=== PATIENT | female | born 1980 | race Caucasian/White ===

== ENCOUNTER 2021-12-20 12:11 | Outpatient (CLI) | payer BC, SELFPAY ==
[2021-12-20 15:16] LABS: Cholesterol* 154 mg/dL (90-199)
[2021-12-20 15:17] LABS: HDL Cholesterol* 47 mg/dL (>=50); LDL Cholesterol Calculated 90 mg/dL (<100); Triglycerides* 85 mg/dL (40-149)
== END 2021-12-20 12:12 | disposition home or self-care (01) ==
PROVIDERS: PCP Internal Medicine; Visit Provider Obstetrics & Gynecology
DX: Z01.419 Encounter for gynecological examination (general) (routine) without abnormal findings (principal); E03.9 Hypothyroidism, unspecified; L70.9 Acne, unspecified; Z13.6 Encounter for screening for cardiovascular disorders
CPT/HCPCS: 80061; 84439; 84443

== ENCOUNTER 2021-12-30 09:35 | Outpatient (CLI) | payer BC, SELFPAY ==
--- NOTE | 2021-12-30 09:45 | CRLHL7_ITS ---
For Patients: As a result of the Cures Act, medical imaging exams and procedure reports are released immediately into your electronic medical record. You may view this report before your referring provider. If you have questions, please contact your health care provider. DIGITAL DIAGNOSTIC BILATERAL MAMMOGRAM WITH COMPUTER-AIDED DETECTION, 12/30/2021 RIGHT BREAST ULTRASOUND, 12/30/2021 CLINICAL HISTORY: RIGHT breast lump. COMPARISON: 02/06/2021. TECHNIQUE: Digital BILATERAL mammogram in four projections. Computer-aided detection utilized. Real-time ultrasound imaging of RIGHT breast with imaging documentation. BREAST COMPOSITION: The breasts are heterogeneously dense, which may obscure small masses. FINDINGS: 3D CC/MLO mammogram submitted bilaterally. No suspicious masses or architectural distortion bilaterally. Targeted RIGHT breast ultrasound performed in the area of concern 9 o`clock 8 cm from the nipple. In this location there is a benign intramammary lymph node measuring 8 x 3 x 9 mm. IMPRESSION: Benign intramammary lymph node RIGHT breast 9 o`clock 8 cm from the nipple measuring 9 mm. No evidence of malignancy. ASSESSMENT: BI-RADS Category 2: Benign RECOMMENDATIONS: Annual bilateral screening mammography. Results and recommendations discussed with the patient. A lay language report of this examination will be provided to the patient. Dictated by Fransisco Boland MD @ 12/30/2021 12:38:43 PM JEFE/Dictated by: Fransisco Boland MD @ 12/30/2021 12:38:00 PM (Electronically Signed)
--- NOTE | 2021-12-30 10:15 | CRLHL7_ITS ---
For Patients: As a result of the Cures Act, medical imaging exams and procedure reports are released immediately into your electronic medical record. You may view this report before your referring provider. If you have questions, please contact your health care provider. PLEASE SEE DIGITAL DIAGNOSTIC BILATERAL MAMMOGRAM PERFORMED SAME DAY CRL:krish rutherford/Dictated by: Fransisco Boland MD @ 12/30/2021 12:38:00 PM (Electronically Signed)
== END 2021-12-30 09:36 | disposition home or self-care (01) ==
LOC: MAMMO 09:35
PROVIDERS: PCP Internal Medicine; Visit Provider Obstetrics & Gynecology
DX: N63.10 Unspecified lump in the right breast, unspecified quadrant (principal); R92.8 Other abnormal and inconclusive findings on diagnostic imaging of breast
CPT/HCPCS: 76642; 77066; G0279

== ENCOUNTER 2022-02-07 08:15 | Outpatient (RCR) | payer BC, SELFPAY | END 2022-04-17 11:39 | disposition home or self-care (01) | PROVIDERS: PCP Internal Medicine; Visit Provider Internal Medicine | DX: G57.02 Lesion of sciatic nerve, left lower limb (principal); Z51.89 Encounter for other specified aftercare | CPT/HCPCS: 97110; 97112; 97140; 97161 ==

== ENCOUNTER 2022-12-10 14:43 | Outpatient (CLI) | payer BC, SELFPAY | END 2022-12-10 14:44 | disposition home or self-care (01) | LOC: NFLDREF 14:50 | PROVIDERS: PCP Internal Medicine; Visit Provider Family Medicine | DX: E03.9 Hypothyroidism, unspecified (principal) | CPT/HCPCS: 80061; 84443 ==

== ENCOUNTER 2023-01-16 08:04 | Outpatient (CLI) | payer BC, SELFPAY ==
--- NOTE | 2023-01-16 08:15 | CRLHL7_ITS ---
For Patients: As a result of the Century Cures Act, medical imaging exams and procedure reports are released immediately into your electronic medical record. You may view this report before your referring provider. If you have questions, please contact your health care provider. BILATERAL SCREENING MAMMOGRAM WITH COMPUTER-AIDED DETECTION TECHNIQUE: CC and MLO views were obtained. These mammographic images have been obtained using full-field digital technique. These mammographic images were interpreted with the benefit of computer-aided detection. COMPARISON FILM: 12/30/21, 02/06/21. FINDINGS: The breasts are heterogeneously dense, which may obscure small masses IMPRESSION: There is no radiographic evidence for malignancy. ASSESSMENT: BI-RADS Category 1: Negative RECOMMENDATION: Routine screening mammogram in 1 year. A lay language report of this examination will be provided to the patient. Fransisco Boland M.D. Diagnostic Radiologist [email or web address] ALYCE/[email or web address] / be/Dictated by: Fransisco Boland MD @ 01/16/2023 9:10:00 AM (Electronically Signed)
== END 2023-01-16 08:05 | disposition home or self-care (01) ==
LOC: MAMMO 08:05
PROVIDERS: PCP Internal Medicine; Visit Provider Obstetrics & Gynecology
DX: Z12.31 Encounter for screening mammogram for malignant neoplasm of breast (principal); R92.2 Inconclusive mammogram
CPT/HCPCS: 77067

== ENCOUNTER 2023-10-29 13:02 | Outpatient (CLI) | payer BC, SELFPAY ==
--- OUTSIDE RECORDS SUMMARY | 2023-10-29 14:45 | XMS_ITS | Referral Summary ---
Author Name Unknown Organization [facility] Address [address] [place] [address] Care Team Providers Care Vp Organizational Development Name Role Phone Elsewhere, Pcp Primary Care Provider Unavailabl e Source Comments Patient records contain information from all sites at [facility]. For routine questions regarding patient records, call [phone] during business hours, M-F 8:00 AM - 5:00 PM Central Time. Record requests for emergency care only can be directed to [phone] at any time.[facility] Allergies Active Allergy Reactions Criticality Noted Date Comments Cat's Claw Other (see comments) 05/13/2023 Cat Dander Cough 04/17/2010 Cephalexin Anaphylaxis 12/19/2005 Dog Dander Cough 12/04/2017 House Dust Cough Indomethacin Rash 11/20/2014 Medications Medication Sig Dispensed Refills Start Date End Date Status fluticasone propionate (FLOVENT HFA) 110 mcg/actuation inhaler Inhale 1 puff 2 (two) times a day as needed. 06/06/2016 Active levothyroxine (SYNTHROID, LEVOTHROID) 50 mcg tablet Take 50 mcg by mouth. 08/02/2009 Active loratadine (CLARITIN) 10 mg tablet Take 10 mg by mouth. 11/20/2014 Active magnesium oxide (MAG-OX) 250 mg of magnesium tablet Take 250 mg by mouth daily. Active norethindrone (MICRONOR) 0.35 mg tablet Take 1 tablet (0.35 mg total) by mouth daily. 84 tablet 4 12/25/2022 12/25/2023 Active budesonide (PULMICORT) 0.5 mg/2 mL nebulizer solution Mix 2 mL of medication with 8 oz nasal saline. Irrigate nose as directed twice a day for 10 days. 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 No 11/18/2022 Within the last year, have y ou been humiliated or emotionally abused in other ways by your partner or ex-partner? No Within the last year, have y ou been kicked, hit, slapped, or otherwise physically hurt by your partner or ex-partner? No 11/18/2022 Within the last year, have y ou been raped or forced to have any kind of sexual activity by your partner or ex-partner? No 11/18/2022 Overall Financial Resource Strain (CARDIA) Answe r Date Recorded How hard is it for you to pa y for the very basics like food, housing, medical care, and heating? Not hard at all 11/18/2022 PHQ-2 Answer Date Recorded PHQ-2 Score 0 12/25/2022 Exercise Vital Sign Answer Date Recorde d On average, how many days pe r week do you engage in moderate to strenuous exercise (like a brisk walk)? 5 days 11/18/2022 On average, how many minutes do you engage in exercise at this level? 40 min 11/18/2022 Hunger Vital Sign Answer Date Recorded Within the past 12 months, y ou worried that your food would run out before you got the money to buy more. Never true 11/19/19 23 Within the past 12 months, t he food you bought just didn't last and you didn't have money to get more. Never true 11/18/2022 PRAPARE - Transportation Answer Date Re corded In the past 12 months, has l ack of transportation kept you from medical appointments or from getting medications? No 10/22 In the past 12 months, has l ack of transportation kept you from meetings, work, or from getting things needed for daily living? No 11/18/2022 Depression Answer Date Recor ded PHQ-9 Total Score (max 27) 1 12/25 Nutrition Answer Date Recorded Nutrition: EVOO Fat Source Unknown 11/18 On average, how many serving s of fruits and vegetables do you eat per day (serving size is equal to 1 cup or approximately the size of a tennis ball)? 3-5 11/18/2022 Dental Answer Date Recorded Dental: Regular Dentist Yes 11/19/19 Employment Answer Date Recorded Employment status Employed and actively working without restrictions 11/18/2022 Housing Stability Answer Date Recorded What is your living situation today? I have a [facility] place to live 11/18/2022 Sex and Gender Information Value Date Recorded Sex Assigned at Female 09/08/2018 7:38 PM CDT Gender Identity Female 09/08/2018 7:38 PM CDT Sexual Orientation Straight 09/08/2018 7: 38 PM CDT Last Filed Vital Signs Vital Sign Reading Time Taken Comments Blood Pressure 113/76 12/25/2022 10:52 AM CDT Pulse 72 12/25/2022 10:52 AM CDT Temperature 37 ??C (98.6 ??F) 07/03/2022 1:31 PM ADMINISTRATIVE SERVICES COORDINATOR Respiratory Rate 16 12/25/2022 10:52 AM CDT Oxygen Saturation 100% 12/04/2021 2:52 PM CDT Inhaled Oxygen Concentration - - Weight 51.2 kg (112 lb 14 oz) 12/25/2022 10:52 A M CDT Height 157.5 cm (5' 2) 12/25/2022 10:52 AM CDT Body Mass Index 20.65 12/25/2022 10:52 AM CDT Plan of Treatment Not on file Medical Devices Implanted Type Area Obedience Trainer Device Identifier Shelf Expiration Date Model / Serial / Lot Gynecologic Other Gynecologic Other Abdomen Description:Mirena IUD Procedures Procedure Name Priority Date/Time Associated Diagnosis Comments LIPID PANEL, S Routine 12/25/2022 11:24 AM CDT Hypothyroidism HPV WITH GENOTYPING, PCR, THINPREP Routine 07/03/2022 2:46 PM ADMINISTRATIVE SERVICES COORDINATOR THYROID FUNCTION CASCADE, S Routine 09/13/2018 3:15 PM CDT Diarrhea from Last 3 Months or Most Recently Relevant to Health Maintenance Results * Lipid Panel (12/25/2022 11:24 AM CDT) Triglycerides 59 mg/dL 12/25/2022 11:48 AM CDT CNFL Comment: ----REFERENCE VALUE---- Normal: <150 mg/dL Borderline High: 150-199 mg/dL High: 200-499 mg/dL Very High: > or =500 mg/dL Cholesterol, Total 174 mg/dL 2022 11:48 AM CDT CNFL Comment: ----REFERENCE VALUE---- Desirable: < 200 mg/dL Borderline High: 200 - 239 mg/dL High: > or = 240 mg/dL Cholesterol, LDL, Calculated 97 mg/dL 12/25/2022 11:48 AM CDT CNFL Comment: ----REFERENCE VALUE---- Desirable: <100 mg/dL Above Desirable: 100-129 mg/dL Borderline High: 130-159 mg/dL High: 160-189 mg/dL Very High: >=190 mg/dL ----ADDITIONAL INFORMATION---- LDL cholesterol calculated using the Lopez/NIH equation. Cholesterol, HDL 65 >=50 mg/dL 12/26/19 11:48 AM CDT CNFL Cholesterol, Non-HDL, Calculated 109 mg/dL 12/25/2022 11:48 AM CDT [facility]FL Comment: ----REFERENCE VALUE---- Desirable: <130 mg/dL Above Desirable: 130-159 mg/dL Borderline High: 160-189 mg/dL High: 190-219 mg/dL Very High: > or =220 mg/dL Fasting (8 HR or more) No 12/25/2022 11:25 AM CDT CNFL Blood (Blood, Venous) 12/25/2022 11:24 AM CDT 12/25/2022 11:25 AM CDT Mary Zepeda APRN, C.N.P. LAB BLOOD ADD- ON [facility] [address] [place] [id number], [facility] CNFL [facility] in [address] [address] * HPV with Genotyping, PCR, ThinPrep (07/03/2022 2:46 PM ADMINISTRATIVE SERVICES COORDINATOR) Specimen Source Thin Prep Vial, Cervix/Endoc ervix 07/08/2022 4:01 PM ADMINISTRATIVE SERVICES COORDINATOR DTL HPV High Risk type 16, PCR Negative Negative 07/08/2022 4:01 PM ADMINISTRATIVE SERVICES COORDINATOR DTL HPV High Risk type 18, PCR Negative Negative 07/08/2022 4:01 PM ADMINISTRATIVE SERVICES COORDINATOR DTL HPV other High Risk types, PCR Negative Negative 07/08/2022 4:01 PM ADMINISTRATIVE SERVICES COORDINATOR DTL Comment: The following Other High Risk HPV types were not detected: 31, 33, 35, 39, 45, 51, 52, 56, 58, 59, 66, and 68 This test was ordered in the context of a [facility] MANAGER ARCHITECTURAL Cytology case; this result should be interpreted within the context of the MANAGER ARCHITECTURAL cytology report. 07/03/2022 2:46 PM ADMINISTRATIVE SERVICES COORDINATOR 07/04/2022 8:32 AM ADMINISTRATIVE SERVICES COORDINATOR Teresa Woo M.D. LAB MICR OBIOLOGY - GENERAL ORDERABLES [facility] [address] [place] [address], [place] DTL [facility] [address] [place] [address] * Thyroid Function [place] (09/13/2018 3:15 PM CDT) TSH, Sensitive 1.4 0.3 - 4.2 mIU/L 09/13/2018 4:22 PM CDT [facility] Blood (Blood, Venous) 09/13/2018 3:15 PM CDT 09/13/2018 3:35 PM CDT Jayme Wray M.D. LAB BLOOD ADD-ON [facility] [address] from Last 3 Months or Most Recently Relevant to Health Maintenance Care Teams Vp Organizational Development Relationship Specialty Start Date End Date Elsewhere, Pcp PCP - General Family Medicine 05/14/18
--- OUTSIDE RECORDS SUMMARY | 2023-10-29 14:45 | XMS_ITS ---
Author Name Unknown Organization [facility] Address [address] [place] [address] Care Team Providers Care Fire Safety Director Name Role Phone Unavailable Unavailable Unavailable Surgery Details Not on file Complications Check Surgery Details section. Procedure Estimated Blood Loss Check Surgery Details section. Procedure Findings Check Surgery Details section. Procedure Specimens Taken Check Surgery Details section.
--- OUTSIDE RECORDS SUMMARY | 2023-10-29 14:45 | XMS_ITS | Clinical Summary ---
Author Name Unknown Organization [email or web address] Address [place], [place] [address] Care Team Providers Care Multiplex Operator Name Role Phone Kerrie Jurado MD Primary Care Provider [phone] Allergies Active Allergy Reactions Criticality Noted Date Comments Cat Dander Cough 04/17/2010 Cat's Claw (Uncaria Tomentosa) Other - Describe In Comment Field 05/24/2019 Cephalexin 12/19/2005 Cephalosporins Anaphylaxis High 12/19/2005 Dog Dander Cough 12/04/2017 House Dust Cough 05/24/2019 Indomethacin Rash 11/20/2014 Medications Medication Sig Dispensed Refills Start Date End Date Status levothyroxine (SYNTHROID) 50 mcg tablet Take 1 tablet by mouth before breakfast. 0 08/02/2009 Active albuterol HFA (PRO-AIR,VENTOLIN,PRO VENTIL) 90 mcg/actuation inhalerIndications:Al lergic cough Inhale 2 Puffs by mouth every 4 hours if needed for Wheezing. 1 Inhaler 3 07/18/2013 Active Inhalational Spacing Device ([employer]AMBER) For home use. 1 Device 0 07/18/2013 Active loratadine (CLARITIN) 10 mg tablet Take 1 tablet by mouth once daily. 0 11/20/2014 Active fluticasone (FLOVENT HFA) 110 mcg/Actuation inhalerIndications:Mi ld persistent asthma without complication,Acute maxillary sinusitis, unspecified Inhale 1 Puff by mouth 2 times daily. 3 Inhaler 3 06/06/2016 Active triamcinolone, 55 mcg each actuation, nasal (NASACORT AQ) 55 mcg nasal spray Inhale 2 Sprays into both nostrils once daily. 16.5 g 11/04/2016 Active spironolactone (ALDACTONE) 100 mg tablet 08/22/2018 Active predniSONE (DELTASONE) 10 mg tabletIndications:Herlinda t pain, left 2 pills (20mg) daily for 5 days, and then 1 pill ( 10 mg) daily for 5 days. 15 tablet 01/31/2020 Active Active Problems Problem Noted Date Diagnosed Date Neck pain, chronic 12/09/2016 Overview: November 2016: right C6-7 Interlaminar [facility] at [facility]. Mar 2017: right C6-7 Interlaminar [facility] at [facility]. September 2017: right C6-7 Interlaminar [facility] at [facility]. October 2018: C7-T1 Interlaminar [facility] at [facility]. Physical therapy: [facility] Mar 02 to Mar 30, 2019. Apr 2019: [facility] C7-T1 [place] [facility]. 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) 09/27/2015 Scapular dyskinesis 09/27/2015 Impingement syndrome of right shoulder 6 Diarrhea 06/11/2009 Overview: Colonoscopy 09/2009 normal Resolved Problems Problem Noted Date Diagnosed Date Resolved Date Celiac disease 12/07/2009 05/22/2015 Immunizations Name Administration Dates Next Due Influenza, IIV3 (Age 6-35 mos) 03/15/2012,2010 Influenza, IIV4 03/20/2016,03/27/2015 Influenza, IIV4 (=>6mos) MDV 04/13/2018 Influenza,CCIIV4 PRESERV FREE 03/31/2017 Influenza,LAIV4 Live Intranasal (Flumist) 2013 Pneumococcal Poly,23-Valent (Pneumovax) 10/29/19 17 Tdap 11/19/2011 Social History Tobacco Use Types Packs/Day Years Used Date Smoking Tobacco: Never Smokeless Tobacco: Never Tobacco Cessation:Counseling Given: Yes Alcohol Use Standard Drinks/Week Comments Never 0 (1 standard drink = 0.6 oz pur e alcohol) PHQ-2 Answer Date Recorded PHQ-2 Score 0 05/24/2019 Social Connections Answer Date Recorded Frequency of Communication with Friends and Fami ly Not on file 09/01/2022 Financial Resource Strain Answer Date R ecorded Difficulty of Paying Living Expenses Not on file 06/22/2021 Difficulty of Paying Living Expenses Not on file 06/22/2021 Sex and Gender Information Value Date Recorded Sex Assigned at Not on file Gender Identity Not on file Sexual Orientation Not on file Obstetrics History Para Term AB IAB SAB Ectopic Multiple Livin g Live Births 1 1 Date Outcome GA Total Labor Labor/2nd/3rd Weight Sex Delivery Anes PTL Na A1 A5 Name Cl in Last Filed Vital Signs Vital Sign Reading Time Taken Comments Blood Pressure 119/71 09/01/2022 11:51 AM CDT Pulse 80 09/01/2022 11:51 AM CDT Temperature 36.8 ??C (98.2 ??F) 09/01/2022 11:51 AM C DT Respiratory Rate - - Oxygen Saturation 100% 09/01/2022 11:51 AM CDT Inhaled Oxygen Concentration - - Weight 48.5 kg (107 lb) 01/31/2020 2:12 PM CDT Height 157.5 cm (5' 2) 05/24/2019 9:17 AM RN ACLS Body Mass Index 19.57 05/24/2019 9:17 AM RN ACLS Plan of Treatment Health Maintenance Due Date Last Done Comments HIV for age 15-65 12/14/1995 Hepatitis C screening for age 18-79 1998 BMI (ht and wt on same day) for age 18+ 05/24/2020 05/24/2019, 06/06/2016 Depression screening for age 12+ 05/24/2020 05/24/2019 Pap test for age 21-65 02/08/2021 8, 02/08/2018, 03/27/2015, Additional history exists Tetanus booster 11/18/2021 11/19/2011, 10/22 [facility] COVID-19 vaccine series ( season) 2023 04/17/2022, 06/03/2021, 12/06/2020, Additional history exists Influenza for age 9-49 02/21/2024 8, 03/31/2017, 03/20/2016, Additional history exists Tdap Completed 11/19/2011 Pneumococcal series for age 6-64 Aged Out 10/28/2016 No longer eligible based on patient's age to complete this topic Procedures Procedure Name Priority Date/Time Associated Diagnosis Comments CUT OUT WORKER THIN PREP PAP SCREEN IMAGED Routine 02/08/2018 12:00 PM CDT from Last 3 Months or Most Recently Relevant to Health Maintenance Results * CUT OUT WORKER THIN PREP PAP SCREEN IMAGED (02/08/2018 12:00 PM CDT) Case Report Gynecologic Cytology Report ? Case: [id number] ? Authorizing Provider: ??Roxana Montana NP ? Collected: ? 02/08/2018 1200 ? First Screen: ?Sarika Rudd ?Received: ?02/09/2018 1422 ? Specimen: ?CUT OUT WORKER ThinPrep Vial Screening, Cervical/Vaginal ? 02/20/2018 7:39 AM CDT [facility] [employer] LABORATORY ENTRAL LABORATORY INTERPRETATION/ RESULT NEGATIVE FOR INTRAEPITHELIAL LESION OR MALIGNANCY (NIL) (none) 02/20/2018 7:39 AM T [facility] LABORATORY IMEN ADEQUACY Satisfactory for evaluation Endocervical component present 02/20/2018 7:39 AM CDT [facility] LABORATORY ENTRAL LABORATORY HPV REQUEST HPV and PAP 02/20/2018 7:39 AM CDT [facility] ENTRAL LABORATORY Last Pap Date 03/27/2015 02/20/2018 7:39 AM [facility] ENTRNE LABORATORY Automated Review Successful 02/20/2018 7:39 AM T [facility] EN[facility]AL LABORATORY Comment:Specimen processed s uccessfully by automated instrument maintenance supervisor device, ThinPrep Imaging System, [employer] ANCILLARY TESTING CUT OUT WORKER HPV Ordered, Please see separate report 02/20/2018 7:39 AM CDT [facility] ENTRNE LABORATORY Note The pap test is a screening technique, not a diagnostic procedure. ??It is used primarily to screen for squamous cancers and precursor lesions. ??Published studies have shown that it is subject to both false negative and false positive results. ??The pap test should not be used as the sole means to diagnose or exclude pre-malignant and malignant lesions. Cytology is screened and interpreted at [facility] - [address], [place] [address] and [facility] - [address]; [place] [address] [facility] - [address]; [place] [address] and [facility] [address]; [place] [address] 02/20/2018 7:39 AM CDT [facility] LAB[facility] Other (Cervical/Vagina l) 02/08/2018 12:00 PM CDT 02/09/2018 2:22 PM CDT Roxana Montana UNHAIRING INSPECTOR PATHOLOGY/CYTOLOGY [facility] [address] [place] [address], [place] from Last 3 Months or Most Recently Relevant to Health Maintenance Care Teams Multiplex Operator Relationship Specialty Start Date End Date Kerrie Jurado MD [facility] - General 09/27/09
--- OUTSIDE RECORDS SUMMARY | 2023-10-29 14:45 | XMS_ITS | Encounter Summary ---
Author Name Unknown Organization [facility] Address [address] [place] [address] Care Team Providers Care Sock Boarder Name Role Phone Elsewhere, Pcp Primary Care Provider Unavailabl e Reason for Referral * Outpatient (Routine) - Closed Specialty Diagnoses / Procedures Referred By Contact Referred To Contact Gastroenterology and Hepatology Diagnoses Functional Dyspepsia Gastroesophageal Reflux Disease Kerrie Jurado M.D. [address] [place] [address] [facility] Referral ID Status Reason Start Date Expiration Date Visits Re quested Visits Authorized [id number] Closed 09/07/2018 09/07/2019 1 1 Encounter Details Date Type Department Care Team (Late st Contact Info) Description 09/06/2018 [facility] [address] [place] [address] Kerrie Jurado M.D. [address] [place] [address] Functional Dyspepsia (Primary Dx); Gastroesophageal Reflux Disease Social History Tobacco Use Types Packs/Day Years Used Date Smoking Tobacco: Never Smokeless Tobacco: Never Sex and Gender Information Value Date Recorded Sex Assigned at Female 09/08/2018 7:38 PM CDT Gender Identity Female 09/08/2018 7:38 PM CDT Sexual Orientation Straight 09/08/2018 7: 38 PM CDT documented as of this encounter Plan of Treatment Scheduled Referrals Name Type Priority Associated Diagnoses Order Schedule Gastroenterology & Hepatology Referral Outpatient Referral Routine Functional Dyspepsia Gastroesophageal Reflux Disease Expected: 09/07/2018 (Approximate), Expires: 09/07/2021 documented as of this encounter Visit Diagnoses Diagnosis Functional Dyspepsia- Primary Gastroesophageal Reflux Disease documented in this encounter Additional Health Concerns Assessment Noted Time PHQ-9 Depression Total Score: 2 12/20/19 11 8:32 AM CDT documented as of this encounter Care Teams Sock Boarder Relationship Specialty Start Date End Date Elsewhere, Pcp PCP - General Family Medicine 05/14/18 documented as of this encounter
--- OUTSIDE RECORDS SUMMARY | 2023-10-29 14:45 | XMS_ITS | Clinical Summary ---
Author Name Unknown Organization [facility] Address [address] [place] [address] Care Team Providers Care Track Leader Name Role Phone Elsewhere, Pcp Primary Care Provider Unavailabl e Source Comments Patient records contain information from all sites at [facility]. For routine questions regarding patient records, call [phone] during business hours, M-F 8:00 AM - 5:00 PM Central Time. Record requests for emergency care only can be directed to [phone] at any time.[facility] Allergies Active Allergy Reactions Criticality Noted Date [...] Intolerance Lactose 10/05/2018 Clearing Throat Habitual 10/05/2018 Family History Medical History Relation Name Comments Anxiety disorder Brother Parkinsons disease Father Cancer Maternal Grandfather Dementia Mother Breast cancer Neg Hx Cancer of vulva Neg Hx Cervical cancer Neg Hx Endometrial cancer Neg Hx Ovarian cancer Neg Hx Uterine cancer Neg Hx Vaginal cancer Neg Hx Relation Name Status Comments Brother Father Maternal Grandfather Maternal Grandmother Mother Paternal Grandfather Paternal Grandmother Social History Tobacco Use Types Packs/Day Years [...] money to buy more. Never true 11/19/19 Within the past 12 months, t he [...] your living situation today? I have a [facility] place to live 11/18/2022 Sex and Gender [...] 37 ??C (98.6 ??F) 07/03/2022 1:31 PM WOOD GRAINER Respiratory Rate 16 12/25/2022 10:52 AM CDT Oxygen Saturation 100% 12/04/2021 2:52 PM CDT Inhaled Oxygen Concentration - - Weight 51.2 kg (112 lb 14 oz) 12/25/2022 10:52 A M CDT Height 157.5 cm (5' 2) 12/25/2022 10:52 AM CDT Body Mass Index 20.65 12/25/2022 10:52 AM CDT Plan of Treatment Health Maintenance Due Date Last Done Comments HIV Screening 1980 Hepatitis C Screening 1980 Mammogram 1980 Hepatitis B Vaccines (1 of 3 - 19+ 3-dose series) 12/14/1999 Thyroid Stimulating Hormone (TSH) test for thyroid function 09/14/2019 09/13/2018 Depression Screening (Annual PHQ-2) 06/22/2023 Cervical Cancer Screening 07/03/20272022, 07/03/2022, 02/08/2018 Lipid (Cholesterol) Screening 12/26/2027 12/25/2022 DTaP,Tdap,and Td Vaccines (3 - Td or Tdap) 12/21/2031 12/20/2021, 11/19/2011 Pneumococcal vaccine (0-64 years) Aged Out 10/28/2016 No longer eligible based on patient's age to complete this topic COVID-19 Vaccine Completed 03/28/2023, , 06/03/2021, Additional history exists Influenza Vaccine Completed 03/28/2023, , 04/04/2021, Additional history exists HPV Vaccines Aged Out No longer eligi ble based on patient's age to complete this topic Medical Devices Implanted Type Area Museum Guide Device Identifier Shelf Expiration Date Model / Serial / Lot Gynecologic Other Gynecologic Other Abdomen Description:Mirena IUD Procedures Procedure Name Priority Date/Time Associated Diagnosis Comments LIPID PANEL, S Routine 12/25/2022 11:24 AM CDT Hypothyroidism HPV WITH GENOTYPING, PCR, THINPREP Routine 07/03/2022 2:46 PM WOOD GRAINER THYROID FUNCTION CASCADE, S Routine 09/13/2018 3:15 [...] Zepeda APRN, C.N.P. LAB BLOOD ADD- ON [facility] [address] [place] [id number], [facility] in [address] [address] * HPV with Genotyping, PCR, ThinPrep (07/03/2022 2:46 PM WOOD GRAINER) Specimen Source Thin Prep Vial, Cervix/Endoc ervix 07/08/2022 4:01 PM WOOD GRAINER DTL HPV High Risk type 16, PCR Negative Negative 07/08/2022 4:01 PM WOOD GRAINER DTL HPV High Risk type 18, PCR Negative Negative 07/08/2022 4:01 PM WOOD GRAINER DTL HPV other High Risk types, PCR Negative Negative 07/08/2022 4:01 PM WOOD GRAINER DTL Comment: The following Other High Risk HPV types were not detected: 31, 33, 35, 39, 45, 51, 52, 56, 58, 59, 66, and 68 This test was ordered in the context of a [facility] WING COVERER Cytology case; this result should be interpreted within the context of the WING COVERER cytology report. 07/03/2022 2:46 PM WOOD GRAINER 07/04/2022 8:32 AM WOOD GRAINER Teresa Woo M.D. LAB MICR OBIOLOGY - GENERAL ORDERABLES Performing Organization Address City/[facility]/ZIP Co de Phone Number [facility] [address] DTL [facility] [address] [place] [address] * Thyroid Function [place] (09/13/2018 3:15 PM CDT) TSH, Sensitive 1.4 0.3 - 4.2 mIU/L 09/13/2018 4:22 PM CDT [facility] Blood (Blood, Venous) 09/13/2018 3:15 PM CDT 09/13/2018 3:35 PM CDT Jayme Wray M.D. LAB BLOOD ADD-ON [facility] [address] from Last 3 Months or Most Recently Relevant to Health Maintenance Care Teams Track Leader Relationship Specialty Start Date End Date Elsewhere, Pcp PCP - General Family Medicine 05/14/18
== END 2023-10-29 13:03 | disposition home or self-care (01) ==
LOC: NFLDREF 14:43
PROVIDERS: PCP Internal Medicine; Visit Provider Internal Medicine
DX: E03.9 Hypothyroidism, unspecified (principal)
CPT/HCPCS: 84443

== ENCOUNTER 2024-01-21 15:26 | Outpatient (CLI) | payer BC, SELFPAY ==
--- OUTSIDE RECORDS SUMMARY | 2024-01-21 15:31 | XMS_ITS | Clinical Summary ---
Author Organization [facility] Address [place], [place] [address] Care Team Providers Care Ammunition Storage Superintendent Name Role Phone Kerrie Jurado MD Primary Care Provider [phone]- [phone] Allergies Active Allergy Reactions Criticality Noted Date [...] November 2016: right C6-7 Interlaminar [facility] at [facility]. Mar 2017: right C6-7 Interlaminar MICH at [facility]. September 2017: right C6-7 Interlaminar MICH at [facility]. October 2018: C7-T1 Interlaminar MICH at [facility]. Physical therapy: [facility] Mar 02 to Mar 30, 2019. Apr 2019: [facility] C7-T1 [place]. Unspecified asthma, uncomplicated 11/04/2016 [...] Outcome GA Total Labor Labor/2nd/3rd Weight Sex Type Anes PTL Na A1 A5 Name Clin Last Filed Vital Signs Vital Sign Reading [...] 157.5 cm (5' 2) 05/24/2019 9:17 AM INCLUSION TEACHER Body Mass Index 19.57 05/24/2019 9:17 AM INCLUSION TEACHER Plan of Treatment Health Maintenance Due Date Last Done Comments HIV for age 15-65 12/14/1995 Hepatitis C screening for age 18-79 1998 BMI (ht and wt on same day) for age 18+ 05/24/2020 05/24/2019, 06/06/2016 Depression screening for age 12+ 05/24/2020 05/24/2019 Pap test for age 21-65 02/08/2021 8, 02/08/2018, 03/27/2015, Additional history exists Tetanus booster 11/18/2021 11/19/2011, 10/22 ([facility] COVID-19 vaccine series ( season) 2023 04/17/2022, 06/03/2021, 12/06/2020, Additional history exists Influenza for age 9-49 02/21/2024 8, 03/31/2017, 03/20/2016, Additional history exists Tdap Completed 11/19/2011 Pneumococcal series for age 6-64 Aged Out 10/28/2016 No longer eligible based on patient's age to complete this topic Procedures Procedure Name Priority Date/Time Associated Diagnosis Comments CDL TEAM TRUCK DRIVER THIN PREP PAP SCREEN IMAGED Routine 02/08/2018 12:00 PM CDT from Last 3 Months or Most Recently Relevant to Health Maintenance Results * CDL TEAM TRUCK DRIVER THIN PREP PAP SCREEN IMAGED (02/08/2018 12:00 PM CDT) Case Report Gynecologic Cytology Report ? Case: [id number] ? Authorizing Provider: ??Roxana Montana, RICKI ? Collected: ? 02/08/2018 1200 ? First Screen: ?Sarika Rudd ?Received: ?02/09/2018 1422 ? Specimen: ?CDL TEAM TRUCK DRIVER ThinPrep Vial Screening, Cervical/Vaginal ? 02/20/2018 7:39 AM [facility] INTERPRETATION/ RESULT NEGATIVE FOR INTRAEPITHELIAL LESION OR MALIGNANCY (NIL) (none) 02/20/2018 7:39 AM [facility] IMEN ADEQUACY Satisfactory for evaluation Endocervical component present 02/20/2018 7:39 AM [facility] HPV REQUEST HPV and PAP 02/20/2018 7:39 AM [facility] Last Pap Date 03/27/2015 02/20/2018 7:39 AM [facility] Automated Review Successful 02/20/2018 7:39 AM T [facility] Comment:Specimen processed s uccessfully by automated scraper burrer device, ThinPrep Imaging System, [employer] ANCILLARY TESTING CDL TEAM TRUCK DRIVER HPV Ordered, Please see separate report 02/20/2018 7:39 AM CDT [facility] Note The pap test is a [...] lesions. Cytology is screened and interpreted at [facility] - [address], [place] [address] and [facility] - [address]; [place] [address] [facility] - [address]; [place] [address] and [facility] [address]; [place] [address] 02/20/2018 7:39 AM CDT [facility] Other (Cervical/Vagina l) 02/08/2018 12:00 PM CDT 02/09/2018 2:22 PM CDT Roxana Montana MOSAICIST PATHOLOGY/CYTOLOGY [facility] [address] [place] [address], [place] from Last 3 Months or Most Recently Relevant to Health Maintenance Care Teams Ammunition Storage Superintendent Relationship Specialty Start Date End Date Kerrie Jurado MD [facility] - General 09/27/09
== END 2024-01-21 15:27 | disposition home or self-care (01) ==
PROVIDERS: PCP Internal Medicine; Visit Provider Obstetrics & Gynecology
DX: Z01.419 Encounter for gynecological examination (general) (routine) without abnormal findings (principal); E03.9 Hypothyroidism, unspecified; N91.2 Amenorrhea, unspecified; Z13.6 Encounter for screening for cardiovascular disorders; Z13.1 Encounter for screening for diabetes mellitus
CPT/HCPCS: 80061; 84146; 84702

== ENCOUNTER 2024-03-03 14:18 | Outpatient (CLI) | payer BC, SELFPAY ==
--- OUTSIDE RECORDS SUMMARY | 2024-03-03 14:20 | XMS_ITS | Clinical Summary ---
Author Organization [facility] Address [place], [place] [address] Care Team Providers Care Horticultural Farmer Name Role Phone Kerrie Jurado MD Primary Care Provider [phone]- [phone] Allergies Active Allergy Reactions Criticality Noted Date [...] Date Diagnosed Date Neck pain, chronic 12/09/2016 Overview (05/21/2019): November 2016: right C6-7 Interlaminar [facility] at [facility]. Mar 2017: right C6-7 Interlaminar MICH at [facility]. September 2017: right C6-7 Interlaminar MICH at [facility]. October 2018: C7-T1 Interlaminar MICH at [facility]. Physical therapy: [facility] Mar 02 to Mar 30, 2019. Apr 2019: [facility] C7-T1 [place]. 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) 09/27/2015 Scapular dyskinesis 09/27/2015 Impingement syndrome of right shoulder 6 Diarrhea 06/11/2009 Overview (10/01/2009): Colonoscopy 09/2009 normal Resolved Problems Problem Noted Date Diagnosed Date Resolved Date Celiac disease 12/07/2009 05/22/2015 Encounters Date Type Department Care Team Description 01/22/2024 Lab Requisition [facility] [phone] Teresa Schmidt MD from Last 3 Months Immunizations Name Administration Dates Next Due Influenza, [...] 157.5 cm (5' 2) 05/24/2019 9:17 AM CHAIR TRIMMER Body Mass Index 19.57 05/24/2019 9:17 AM CHAIR TRIMMER Plan of Treatment Health Maintenance Due Date Last Done Comments HIV for age 15-65 12/14/1995 Hepatitis C screening for age 18-79 1998 BMI (ht and wt on same day) for age 18+ 05/24/2020 05/24/2019, 06/06/2016 Depression screening for age 12+ 05/24/2020 05/24/2019 Tetanus booster 11/18/2021 11/19/2011, 10/22 (Completed outside of [facility]) COVID-19 vaccine series ( season) 2024 04/17/2022, 06/03/2021, 12/06/2020, Additional history exists Influenza for age 9-49 02/21/2024 8, 03/31/2017, 03/20/2016, Additional history exists Pap test for age 21-65 01/20/2027 4, 01/21/2024, 02/08/2018, Additional history exists Tdap Completed 11/19/2011 Pneumococcal series for age 6-64 Aged Out 10/28/2016 No longer eligible based on patient's age to complete this topic Procedures Procedure Name Priority Date/Time Associated Diagnosis Comments LAB TRACKING EVENT Routine 01/21/2024 3: 45 PM CDT ENTOMOLOGY TEACHER THIN PREP PAP SCREEN IMAGED Routine 01/21/2024 3:45 PM CDT HPV THIN PREP Routine 01/21/2024 3:45 PM CDT from Last 3 Months Results * LAB TRACKING EVENT (01/21/2024 3:45 PM CDT) Other (Other) Client Collect / Unknown 01/21/2024 3:45 PM CDT 01/22/2024 3:58 PM CDT Teresa Schmidt MD LAB BILL ONLY Performing Organization Address City/State/[facility] Co de Phone Number [facility] [address] [place] [address], * ENTOMOLOGY TEACHER THIN PREP PAP SCREEN IMAGED (01/21/2024 3:45 PM CDT) Case Report Gynecologic Cytology Report ? Case: [id number] ? Authorizing Provider: ??Teresa Schmidt MD ?? Collected: ? 01/21/2024 1545 ? Ordering Location: ? [facility] ?Received: ?01/25/2024 0841 ? First Screen: ?Baccam, Minie ? Specimen: ?ENTOMOLOGY TEACHER ThinPrep Vial Screening, Cervical ? 02/02/2024 1:36 PM CDT [facility] INTERPRETATION/ RESULT NEGATIVE FOR INTRAEPITHELIAL LESION OR MALIGNANCY (NIL) (none) 02/02/2024 1:[address] [facility] IMEN ADEQUACY Satisfactory for evaluation No endocervical component seen 02/02/2024 1:[address] [facility] HPV REQUEST HPV and PAP 02/02/2024 1:36 PM CDT [facility] Date of LMP 12/22/2023 02/02/2024 1:36 PM CDT [facility] Last Pap Date 07/03/2022 02/02/2024 1:36 PM CDT [facility] Last Pap Result NIL 1:36 PM CDT [facility] Abnormal Pap or [place] Bx in last 5 years No 02/02/2024 1:36 PM CDT [facility] Menstrual Status Irregular Periods 02/02/2024 1:36 PM CDT [facility] [place] Bx Done Today No 02/02/2024 1:36 PM CDT [facility] Additional Information 02/02/2024 1:36 PM CDT [facility] Comment: Interpreted at [facility] - [address], [place] [address] Automated Review Successful 02/02/2024 1:[address] [facility] Comment:Specimen processed s uccessfully by automated repairer shoe sticks device, ThinPrep Imaging System, [employer] ANCILLARY TESTING ENTOMOLOGY TEACHER HPV Ordered, Please see separate report 02/02/2024 1:36 PM CDT [facility] Note The pap test is a screening technique, not a diagnostic procedure. It is used primarily to screen for squamous cancers and precursor lesions. Published studies have shown that it is subject to both false negative and false positive results. The pap test should not be used as the sole means to diagnose or exclude pre-malignant and malignant lesions. 02/02/2024 1:36 PM CDT [facility] Other (Cervical) 01/21/2024 3:45 PM CDT 01/25/2024 8:41 AM CDT Teresa Schmidt MD PATHOLOGY/CYTOLOG Y Performing Organization Address [facility]/ZIP Co de Phone Number [facility] [address] [place] [id number], * HPV HIGH RISK (01/21/2024 3:45 PM CDT) TYPE 16 Negative Negative 01/26/2024 4:22 PM CDT [facility] TYPE 18 Negative Negative 01/26/2024 4:22 PM CDT [facility] OTHER HIGH RISK TYPES Negative Negative 01/26/2024 4:22 PM CDT [facility] Other (Cervical) 01/21/2024 3:45 PM CDT 01/25/2024 8:41 AM CDT Narrative [facility] - 01/26/2024 4:22 PM CDT HPV types 16, 18, 31, 33, 35, 39, 45, 51, 52, 56, 58, 59, 66 and 68 DNA were undetectable or below the pre-set threshold. Methodology: Jarrell Cooper 4800 HPV Test Teresa Schmidt MD MICROBIOLOGY Performing Organization Address City/[facility]/ZIP Co de Phone Number [facility] [address] [place] [phone], from Last 3 Months Care Teams Horticultural Farmer Relationship Specialty Start Date End Date Kerrie Jurado MD PCP - General 09/27/09
--- NOTE | 2024-03-03 14:40 | CRLHL7_ITS ---
For Patients: As a result of the Century Cures Act, medical imaging exams and procedure reports are released immediately into your electronic medical record. You may view this report before your referring provider. If you have questions, please contact your health care provider. BILATERAL SCREENING MAMMOGRAM WITH COMPUTER-AIDED DETECTION AND TOMOSYNTHESIS TECHNIQUE: CC and MLO views were obtained. These mammographic images have been obtained using full-field digital technique. These mammographic images were interpreted with the benefit of computer-aided detection. Breast Tomosynthesis was used in this interpretation. COMPARISON FILM: 01/16/23, 12/30/21, 02/06/21. FINDINGS: The breasts are extremely dense, which lowers the sensitivity of mammography IMPRESSION: There is no radiographic evidence for malignancy. ASSESSMENT: BI-RADS Category 2: Benign RECOMMENDATION: Routine screening mammogram in 1 year. A lay language report of this examination will be provided to the patient. Fransisco Boland M.D. Diagnostic Radiologist [email or web address] JEFE/Dictated by: Fransisco Boland MD @ 03/04/2024 9:11:00 AM (Electronically Signed)
== END 2024-03-03 14:19 | disposition home or self-care (01) ==
PROVIDERS: PCP Internal Medicine; Visit Provider Internal Medicine
DX: Z12.31 Encounter for screening mammogram for malignant neoplasm of breast (principal); R92.2 Inconclusive mammogram
CPT/HCPCS: 77063; 77067

== ENCOUNTER 2024-10-31 07:52 | Outpatient (CLI) | payer BC, SELFPAY | END 2024-10-31 07:53 | disposition home or self-care (01) | LOC: NFLDREF 11-05 19:36 | PROVIDERS: PCP Internal Medicine; Referring Provider Internal Medicine; Visit Provider Internal Medicine | DX: E03.9 Hypothyroidism, unspecified (principal) | CPT/HCPCS: 84443 ==

== ENCOUNTER 2025-04-13 13:53 | Outpatient (CLI) | payer BC, SELFPAY ==
--- NOTE | 2025-04-13 14:00 | CRLHL7_ITS ---
For Patients: As a result of the Century Cures Act, medical imaging exams and procedure reports are released immediately into your electronic medical record. You may view this report before your referring provider. If you have questions, please contact your health care provider. INDICATION: BILATERAL SCREENING MAMMOGRAM, ASYMPTOMATIC 44 Y/O FEMALE COMPARISON: 03/03/2024, 01/16/2023, 12/30/2021 TECHNIQUE: Digital mammogram in CC and MLO projections including computer-aided detection (CAD) and tomosynthesis. BREAST COMPOSITION: The breasts are heterogeneously dense, which may obscure small masses. FINDINGS: No suspicious findings. ASSESSMENT: BI-RADS 2 Benign RECOMMENDATION: Annual screening mammogram. A lay language report of this examination will be provided to the patient. Dictated by: Fransisco Boland MD @ 04/14/2025 11:49:59 (Electronically Signed)
== END 2025-04-13 13:54 | disposition home or self-care (01) ==
LOC: MAMMO 13:54
PROVIDERS: PCP Internal Medicine; Visit Provider Internal Medicine
DX: Z12.31 Encounter for screening mammogram for malignant neoplasm of breast (principal); R92.333 Mammographic heterogeneous density, bilateral breasts
CPT/HCPCS: 77063; 77067